=== PATIENT | male | born 1960 | race Caucasian/White ===

== ENCOUNTER 2016-06-12 21:22 | Emergency (ER) | payer OTHER ==
[~2016-06-12] VITALS: Ht 182.9 cm; Wt 104.5 kg
[2016-06-12 21:29] VITALS: TEMP 98
[2016-06-12 22:10] LABS: BASO # 0.1 (0.0-0.2); BASO % 0.7 % (0.0-2.0); EOS # 0.1 (0.0-0.7); EOS % 0.9 % (0-4.0); GRAN # 8.2 (1.4-6.5); GRAN % 70.2 % (42.2-75.2); HEMATOCRIT 45.5 % (42.0-52.0); HEMOGLOBIN 15.4 g/dl (13.5-18.0); LYMPH # 2.5 (1.2-3.4); LYMPH % 21.1 % (20.0-51.0); MEAN CELL VOLUME 87 fl (80.0-100.0); MEAN CORPUSCULAR HEMOGLOBIN 30 pg (27.0-31.0); MEAN CORPUSCULAR HGB CONC 34 g/dl (33.0-37.0); MEAN PLATELET VOLUME 9.9 fl (7.4-10.4); MONO # 0.8 (0.1-0.6); MONO % 6.8 % (1.7-9.3); PLATELET COUNT 250 K/mm3 (130-400); RED BLOOD COUNT 5.22 M/mm3 (4.20-5.60); REDCELL DISTRIBUTION WIDTH-CV 13.2 % (11.5-14.5); WHITE BLOOD COUNT 11.7 K/mm3 (4.8-10.8)
[2016-06-12 22:21] LABS: ADJUSTED CALCIUM 9.3 mg/dL (8.4-10.2); ALBUMIN 4.4 gm/dL (3.5-5.0); BILIRUBIN,TOTAL 1.1 mg/dL (0.0-1.0); CALCIUM 9.6 mg/dL (8.4-10.2); CREATININE, serum 1.14 mg/dL (0.66-1.25); TOTAL PROTEIN 7.8 gm/dL (6.4-8.2)
[2016-06-12 22:27] LABS: PH 7 (5-8); SQUAMOUS EPITHELIAL None Seen /hpf; URINE APPEARANCE Clear; URINE BACTERIA None Seen /hpf; URINE BILIRUBIN Negative (NEGATIVE); URINE BLOOD 1+ (NEGATIVE); URINE COLOR Straw; URINE GLUCOSE Negative (NEGATIVE); URINE KETONE Negative (NEGATIVE); URINE UROBILINOGEN Negative (NEGATIVE); URINE WBC 0-2 /hpf
[2016-06-12] MEDS ORDERED: NORCO 325 MG-51 TAB PO (23:36)
[2016-06-12] MEDS ORDERED: FLOMAX 0.40.4 MG/CAP PO (23:36)
[2016-06-12] MEDS ORDERED: ZOFRAN ODT4 MG PO (23:36)
[2016-06-12 23:54] VITALS: BP 138/84; PULSE 66
== END 2016-06-12 23:56 | disposition home or self-care (01) ==
LOC: COL.ER 21:22
PROVIDERS: Emergency Medicine
DX: N13.2 Hydronephrosis with renal and ureteral calculous obstruction (principal); Z88.0 Allergy status to penicillin; R11.0 Nausea
CPT/HCPCS: J1885; J2765; J3010; J7030

== ENCOUNTER → 2018-08-22 | Outpatient (CLI) | payer OTHER ==
[~2018-08-22] MED LIST: FLOMAX 0.40.4 MG/CAP PO; NORCO 325 MG-51 TAB PO; ZOFRAN ODT4 MG PO
[2018-08-22 17:12] LABS: COLLECTION METHOD CLEAN CATCH
[2018-08-22 17:16] LABS: BASO # 0.1 (0.0-0.2); BASO % 0.8 % (0.0-2.0); EOS # 0.1 (0.0-0.7); EOS % 1.4 % (0-4.0); GRAN # 6.9 (1.4-6.5); GRAN % 66.7 % (42.2-75.2); HEMATOCRIT 46.8 % (42.0-52.0); HEMOGLOBIN 15.6 g/dl (13.5-18.0); LYMPH # 2.4 (1.2-3.4); LYMPH % 23.3 % (20.0-51.0); MEAN CELL VOLUME 87 fl (80.0-100.0); MEAN CORPUSCULAR HEMOGLOBIN 29 pg (27.0-31.0); MEAN CORPUSCULAR HGB CONC 33 g/dl (33.0-37.0); MEAN PLATELET VOLUME 9.5 fl (7.4-10.4); MONO # 0.8 (0.1-0.6); MONO % 7.3 % (1.7-9.3); PLATELET COUNT 261 K/mm3 (130-400); RED BLOOD COUNT 5.36 M/mm3 (4.20-5.60); REDCELL DISTRIBUTION WIDTH-CV 13.5 % (11.5-14.5)
[2018-08-22 17:19] LABS: MUCOUS Present /lpf; PH 6 (5-8); SQUAMOUS EPITHELIAL None Seen /hpf; URINE APPEARANCE Clear; URINE BACTERIA None Seen /hpf; URINE BILIRUBIN Negative (NEGATIVE); URINE BLOOD Negative (NEGATIVE); URINE COLOR Yellow; URINE GLUCOSE Negative (NEGATIVE); URINE KETONE Negative (NEGATIVE); URINE LEUKOCYTE ESTERASE Negative (NEGATIVE); URINE NITRATE Negative (NEGATIVE); URINE PROTEIN(semi-quant) Negative (NEGATIVE); URINE RBC 0-2 /hpf; URINE UROBILINOGEN Negative (NEGATIVE); URINE WBC 0-2 /hpf
[2018-08-22 17:27] LABS: ALBUMIN 4.2 gm/dL (3.5-5.0); BILIRUBIN,TOTAL 0.6 mg/dL (0.0-1.0); CALCIUM 9.5 mg/dL (8.4-10.2); CREATININE, serum 0.9 (0.66-1.25); MAGNESIUM 2.2 mg/dL (1.6-2.3); POTASSIUM 4.2 mmol/L (3.4-5.0); TOTAL PROTEIN 7.9 gm/dL (6.4-8.2)
[2018-08-22 17:58] LABS: THYROID STIMULATING HORMONE 2.4 uIU/mL (0.465-4.680)
[2018-08-22 19:22] LABS: PSA-TOTAL 0.79 ng/mL (0-4)
== END ==
LOC: COL.LAB 16:40
PROVIDERS: Registered Nurse
DX: Z12.5 Encounter for screening for malignant neoplasm of prostate (principal); M79.605 Pain in left leg; H53.8 Other visual disturbances; I10 Essential (primary) hypertension
CPT/HCPCS: G0103

== ENCOUNTER 2018-12-09 08:10 | Outpatient (CLI) | payer OTHER ==
[~2018-12-09] VITALS: Ht 182.9 cm; Wt 104.5 kg
[2018-12-09] MEDS ORDERED: CENTRUM MEN'S PO (08:46)
[2018-12-09] MEDS ORDERED: NORVASC 5MG5 MG/TAB PO (08:47)
[2018-12-09] MEDS ORDERED: ASPI325T6 PO (08:47)
[2018-12-09] MEDS ORDERED: ZOCOR 20MG20 MG PO (08:50)
[2018-12-09] MEDS ORDERED: ALEVE 220MG220 MG PO (08:51)
[2018-12-09] MEDS ORDERED: THE MEDICINE SH1 T18 PO (08:51)
[2018-12-09] MEDS ORDERED: ZOVIRAX800 MG PO (08:52)
[2018-12-09 09:02] LABS: HEMATOCRIT 48.4 % (42.0-52.0); HEMOGLOBIN 15.9 g/dl (13.5-18.0); MEAN CELL VOLUME 88 fl (80.0-100.0); MEAN CORPUSCULAR HEMOGLOBIN 29 pg (27.0-31.0); MEAN CORPUSCULAR HGB CONC 33 g/dl (33.0-37.0); MEAN PLATELET VOLUME 9.7 fl (7.4-10.4); PLATELET COUNT 272 K/mm3 (130-400); RED BLOOD COUNT 5.48 M/mm3 (4.20-5.60); REDCELL DISTRIBUTION WIDTH-CV 13.7 % (11.5-14.5)
[2018-12-09 09:05] LABS: PROTHROMBIN TIME 11.8 SECONDS (9.7-12.8)
[2018-12-09 09:07] VITALS: BP 134/103; PULSE 53; TEMP 98.1
[2018-12-09 09:12] LABS: CALCIUM 9.4 mg/dL (8.4-10.2); CREATININE, serum 0.78 (0.66-1.25); POTASSIUM 4.2 mmol/L (3.4-5.0)
[2018-12-09 09:43] VITALS: BP 122/81; PULSE 59; TEMP 98.1
--- NOTE | 2018-12-09 09:43 | NUR ---
Alert and oriented. Dr. Rincon in talking with pt. VSS
[2018-12-09 09:58] VITALS: BP 123/82; PULSE 57; TEMP 98.1
[2018-12-09 10:22] VITALS: BP 116/83; PULSE 52; TEMP 98.1
--- NOTE | 2018-12-09 10:23 | NUR ---
INT discontinued intact. Discharge instructions given.
--- NOTE | 2018-12-09 10:36 | NUR ---
Transferred to private car by lm
== END 2018-12-09 10:37 | disposition home or self-care (01) ==
LOC: COL.RAD 08:10
PROVIDERS: Internal Medicine Cardiovascular Disease
DX: I63.9 Cerebral infarction, unspecified (principal); I34.0 Nonrheumatic mitral (valve) insufficiency; I51.7 Cardiomegaly; I49.9 Cardiac arrhythmia, unspecified
CPT/HCPCS: J2704

== ENCOUNTER → 2019-06-07 | Outpatient (CLI) | payer OTHER ==
[~2019-06-07] MED LIST changes: +ALEVE 220MG220 MG PO; +ASPI325T6 PO; +CENTRUM MEN'S PO; +NORVASC 5MG5 MG/TAB PO; +THE MEDICINE SH1 T18 PO; +ZOCOR 20MG20 MG PO; +ZOVIRAX800 MG PO
== END ==
LOC: COL.RAD 12:34
DX: M48.02 Spinal stenosis, cervical region (principal); M50.30 Other cervical disc degeneration, unspecified cervical region; M47.812 Spondylosis without myelopathy or radiculopathy, cervical region; M75.101 Unspecified rotator cuff tear or rupture of right shoulder, not specified as traumatic

== ENCOUNTER → 2021-12-22 | Outpatient (RCR) | payer OTHER | END | disposition home or self-care (01) | LOC: MKS.ESL.PT | DX: D86.89 Sarcoidosis of other sites (principal); I89.0 Lymphedema, not elsewhere classified ==

== ENCOUNTER 2023-03-23 09:45 | Outpatient (RCR) | payer OTHER | END 2023-03-24 | disposition home or self-care (01) | LOC: MKS.ESL.PT | DX: I69.341 Monoplegia of lower limb following cerebral infarction affecting right dominant side (principal); I69.328 Other speech and language deficits following cerebral infarction; I69.398 Other sequelae of cerebral infarction; R26.89 Other abnormalities of gait and mobility ==

== ENCOUNTER 2023-05-20 08:45 | Outpatient (RCR) | payer OTHER | END 2023-05-23 | disposition home or self-care (01) | LOC: MKS.ESL.OT | DX: I69.351 Hemiplegia and hemiparesis following cerebral infarction affecting right dominant side (principal) ==

== ENCOUNTER → 2023-06-18 | Day surgery (SDC) | payer OTHER ==
[~2023-06-18] VITALS: Ht 177.8 cm; Wt 106.1 kg
[~2023-06-18] MED LIST changes: +Glycopyrrolate 0.2 MG/ML 1 ML VIAL ONE; +IMURAN 50MG TAB50 MG PO; +LR 1,000 ML IV SCH; +LYRICA300 MG PO; +Lidocaine PF 2% (20 MG/ML) 5 ML VIAL ONE; +Ondansetron 4 MG/2 ML VIAL IV PRN; +PLAVIX 75MG TAB75 MG PO
[2023-06-18 07:36] VITALS: BP 140/81; PULSE 54; TEMP 97.3
--- NOTE | 2023-06-18 08:04 | NUR ---
The patient ambulated back to [facility] independently using a slow but steady gait. Vital signs obtained. Consent signed. 20G IV started in right hand with one stick, LR infusing without difficulty. Assessment completed. Home medications reconcilled. Warm blanket provided. , Autumn, brought back to be at his bedside. Call light is within reach. Denies any further needs at this time.
[2023-06-18 08:50] VITALS: BP 99/61; BP_SYST 91; PULSE 66; TEMP 98.6
[2023-06-18 09:05] VITALS: BP 104/80; PULSE 56
[2023-06-18 09:20] VITALS: BP 97/87; PULSE 67
--- NOTE | 2023-06-18 09:30 | NUR ---
0850 Pt ambulated with standby assit from cart to chair with ease 0855 tolerating water and muffin without issues 0931 MD López in room with pt 0932 verbalizes discharge instructions 0933 dressed self with ease 0935 escorted out to vehicle via wheelchair - denies questions or concerns
== END ==
LOC: SDCO 05-28 09:00
DX: Z12.11 Encounter for screening for malignant neoplasm of colon (principal); E66.9 Obesity, unspecified; Z79.02 Long term (current) use of antithrombotics/antiplatelets
CPT/HCPCS: J2704; J7120

== ENCOUNTER 2023-07-20 08:00 | Outpatient (RCR) | payer OTHER ==
[~2023-07-20 08:00] MED LIST changes: -Glycopyrrolate 0.2 MG/ML 1 ML VIAL ONE; -LR 1,000 ML IV SCH; -Lidocaine PF 2% (20 MG/ML) 5 ML VIAL ONE; -Ondansetron 4 MG/2 ML VIAL IV PRN
== END 2023-07-23 | disposition home or self-care (01) ==
LOC: WSST
DX: I69.322 Dysarthria following cerebral infarction (principal); I69.398 Other sequelae of cerebral infarction; R48.9 Unspecified symbolic dysfunctions

== ENCOUNTER 2023-07-21 08:15 | Outpatient (RCR) | payer OTHER | END 2023-07-23 | LOC: WSPT | DX: I89.0 Lymphedema, not elsewhere classified (principal); I69.351 Hemiplegia and hemiparesis following cerebral infarction affecting right dominant side ==